=== PATIENT | female | born 1955 | race Caucasian/White ===

== ENCOUNTER 2023-12-14 10:05 | Observation (INO) ==
[~2023-12-14 10:05] MED LIST: Lidocaine 2% PF 5 ML VIAL ONE; Metoclopramide 5 MG/ML VIAL (10 mg) IV PRN; Midazolam 2 mg/2 ml VIAL 1 mg/ml 2 ml VIAL (2 mg) ONE; NS 0.45% 1000 ml BAG 1,000 ML IV SCH; Naloxone 0.4 mg VIAL 0.4 mg/ml 1 ml VIAL IV PRN; Ondansetron 4 mg VIAL 2 MG/ML 2 ml VIAL IV PRN; Propofol 10 MG/ML 20 ML BTL ONE; Rocuronium 50 mg VIAL 10 mg/ml 5 ml VIAL (50 mg) ONE; fentaNYL 100 mcg/2 ml 50 MCG/ML VIAL ONE
[2023-12-14] MEDS ORDERED: ceFAZolin 2 GM PREMIX 2 GM/50 ML BAG ONE (10:17)
[2023-12-14 10:50] LABS: Rapid COVID-19 Molecular Undetected (Undetected)
[2023-12-14] MEDS ORDERED: Tranexamic Acid 1 GM/100ML BAG 2,000 MG/200 ML BAG IV ONE (11:12)
[2023-12-14] MEDS ORDERED: Sodium Citrate/Citric Acid LIQ 15 ML UDC ONE (12:08)
[2023-12-14] MEDS ORDERED: Famotidine IV 10 MG/ML 2 ml VIAL (20 mg) ONE (12:08)
[2023-12-14] MEDS: Sodium Citrate/Citric Acid LIQ 15 ML UDC PO ONE (12:12)
[2023-12-14] MEDS ORDERED: Ondansetron 4 mg VIAL 2 MG/ML 2 ml VIAL ONE (13:26)
[2023-12-14] MEDS ORDERED: Dexamethasone IV 4 MG/ML VIAL 1 ml VIAL ONE (13:26)
[2023-12-14] MEDS ORDERED: Glycopyrrolate IV 0.2 MG/ML 1 ML VIAL ONE (13:37)
[2023-12-14] MEDS ORDERED: KETAMINE HCL 10 MG/ML 20 ml VIAL (200 MG) ONE (13:39)
[2023-12-14] MEDS ORDERED: Phenylephrine IV 10 MG/ML 1 ml VIAL ONE (14:11)
[2023-12-14] MEDS ORDERED: Calcium Carb (TUMS) 500 mg CHEW TAB PO PRN (14:38)
[2023-12-14] MEDS ORDERED: Magnesium Hydroxide LIQ 30 ML UDC PO PRN (14:38)
[2023-12-14] MEDS ORDERED: Morphine 2 MG/ML SYRINGE IV PRN (14:38)
[2023-12-14] MEDS ORDERED: Ondansetron ODT 4 mg TAB 4 MG TAB PO PRN (14:38)
[2023-12-14] MEDS ORDERED: Lactulose 30 ml UDC PO PRN (14:38)
[2023-12-14] MEDS ORDERED: Ondansetron 4 mg VIAL 2 MG/ML 2 ml VIAL IV PRN (14:38)
[2023-12-14] MEDS: Scopolamine 1 mg/72hr PATCH TRANSDERM ONE (16:22)
[2023-12-14] MEDS: Acetaminophen IV 1 GM/100ML 1,000 MG/100 ML BAG IV ONE (16:22)
[2023-12-14] MEDS: Buffered Lidocaine 1% SYRIN 1 ml INTRADERM ONE (16:22)
[2023-12-14] MEDS: Lactated Ringers 1000 ml BAG 1,000 ML IV SCH ×2 (16:22→18:16)
[2023-12-14] MEDS ORDERED: fentaNYL 100 mcg/2 ml 50 MCG/ML VIAL ONE (16:59)
[2023-12-14] MEDS: ceFAZolin 2 GM in NS PREMIX 2 GM/100 ML BAG IVPB SCH (17:09)
[2023-12-14] MEDS: fentaNYL 100 mcg/2 ml 50 MCG/ML VIAL IV PRN (17:17)
[2023-12-14] MEDS: Magnesium Hydroxide LIQ 30 ML UDC PO SCH (20:14)
[2023-12-14] MEDS: ceFAZolin 2 GM PREMIX 2 GM/50 ML BAG IVPB SCH (20:19)
[2023-12-15 06:16] LABS: Hematocrit 35.6 % (35-45); Hemoglobin 11.9 g/dL (11.5-14.3); Mean Platelet Volume 8.3 fL (7.5-11.2); Platelet Count 204 10^3/uL (150-450)
[2023-12-15 06:30] LABS: Calcium 8.1 mg/dL (8.6-10.3); Creatinine, Serum 1.02 mg/dL (0.51-0.95); Potassium 4.3 mmol/L (3.5-5.0); eGFR CKD-EPI 59.9 (>60)
[2023-12-15] MEDS: Vitamin THERAPEUTIC TAB PO SCH (10:15)
[2023-12-15 14:20] VITALS: BP 104/66
== END 2023-12-15 15:10 | disposition home or self-care (01) ==
LOC: INTOOBSV 10:05 → AA 10:05 → SSU 18:20
PROVIDERS: ADMIT Orthopaedic Surgery Adult Reconstructive Orthopaedic Surgery; ATTEND Orthopaedic Surgery Adult Reconstructive Orthopaedic Surgery